=== PATIENT | male | born 1980 | race Caucasian/White ===

== ENCOUNTER 2023-03-27 09:42 | Emergency (ER) | payer OTHER, SELFPAY ==
[2023-03-27 09:50] VITALS: BP 135/86; PULSE 77; RESP 17; TEMP 36.6; O2SAT 99; BMI 20.1
--- NOTE | 2023-03-27 10:27 | ED_ITS ---
HPI - Dental/Oral General Chief complaint: Dental/Oral Stated complaint: facial swelling, seeking antibiotics Time Seen by Provider: 03/27/23 09:54 Source: patient Mode of arrival: ambulatory Limitations: no limitations History of Present Illness HPI Narrative: 42 year old male w/ no significant pmhx presents today w/ a complaint of dental swelling/pain for the last 3 days. He states that it started as just pain on the upper right side of his mouth, but over the course of the last three days has become increasingly swollen. His pain is controlled with Tylenol. He admits that this happened 6 months ago, he was given antibiotics and was supposed to have the tooth extracted, but never made the appointment. He is moving next week to [place] and states he will not be able to have it pulled before he leaves. He denies any fever, chills, nausea, vomiting, pus drainage, or trauma/injury to the mouth/teeth. MD Complaint: tooth pain Location: Tooth # (4) Onset (ago): day(s) (3) Duration: constant Relieving factors: other (tylenol) Context: poor dental care Associated symptoms: gum swelling Treatment prior to arrival: none Related Data Previous Rx's Medication Instructions Recorded amoxicillin 875 mg-potassium 1 tab PO BID #20 tabs 03/27/23 clavulanate 125 mg tablet chlorhexidine gluconate 0.12 % 15 ml buccal BID #120 mL 03/27/23 mouthwash (Peridex) ibuprofen 600 mg tablet 600 mg PO Q8H PRN fever or pain 03/27/23 #30 tabs Allergies Allergy/AdvReac Type Severity Reaction Status Date / Time vancomycin [VANCOMYCIN] Allergy Mild RASH Verified 03/27/23 09:50 Review of Systems Review of Systems: Yes all other systems are reviewed and are negative PMFSH Social History Social History Advance Directives: No Advance Directives Information Provided: No Physical Exam Vital Signs: Vital Signs: Last Vital Signs Temp 98 F 03/27/23 09:50 Pulse 77 03/27/23 09:50 Resp 17 03/27/23 09:50 BP 135/86 03/27/23 09:50 Pulse Ox 99 03/27/23 09:50 O2 Del Method Room Air 03/27/23 09:50 BMI result Body Mass Index 20.1 Appearance: Alert. Oriented X3. No acute distress. Head: normocephalic, atraumatic. Eyes: Pupils equal, round and reactive to light. ENT: (+) edema over the right anterior/buccal cheek. (+) tenderness to palpation of the right upper region of the mouth w/ friable tissue. Abnormal dentition. Tongue normal. Pharynx normal. No tonsilar swelling or exudate. No trismus Neck: Normal inspection. Neck supple. No swelling anteriorly CVS: Normal heart rate and rhythm. Pulses normal. Respiratory: No respiratory distress. Breath sounds normal. Skin: Skin warm and dry. Normal skin color. Normal skin turgor. No rashes. Neuro/psych: Oriented X 3. No motor deficit. No sensory deficit. CN II-XII intact. Normal speech and cognition. Medical Decision Making Medical Decision Making MDM Narrative: 42 year old male w/ no significant pmhx presents today w/ a complaint of dental swelling/pain for the last 3 days. On exam VSS, NAD, PE as above w/ no trismus, uvular deviation, or fluctuance noted. Likely, a dental abscess. less likely peritonsilar abscess, vs parotitis. Lower suspicion for cellulitis, retropharyngeal abscess, periorbital abscess, sinus infection, or buccal bifurication cyst. Plan: Antibiotics, anti-inflammatory, antiseptic mouthwash, outpatient dental f/u Differential Diagnosis Differential Diagnoses: The differential diagnosis associated with the presentation includes cellulitis, retropharyngeal abscess, periorbital abscess, sinus infection, or buccal bifurication cyst Prescription Management I considered prescription management with: Antibiotic and Other (anti- inflammatory & antiseptic mouthwash) Chronic Conditions Patient?s care impacted by: Other (poor dental care) Social Determinants Patient?s care significantly limited by Social Determinants of Health including: Other Social Determinant of Health Critical Care Time Critical Care Time Critical Care Time: No Discharge Plan Discharge Clinical Impression: Dental abscess Patient Disposition: Home, Self-Care Instructions: Dental Abscess (ED) Additional Instructions: Take the prescribed antibiotics as directed, complete the entire course and do not miss any doses Take Motrin and Tylenol as needed for pain Use ice to the area several times per day to help with swelling and pain You can try clove oil, a warm black tea bag or Orajel to the area as well Follow up with a dentist as soon as possible If you develop new or worsening symptoms call 911 or come back to the ER for further evaluation. Prescriptions: New amoxicillin-pot clavulanate 875-125 mg tablet 1 tab PO BID Qty: 20 0RF ibuprofen 600 mg tablet 600 mg PO Q8H PRN (Reason: fever or pain) Qty: 30 0RF chlorhexidine gluconate [Peridex] 0.12 % mouthwash 15 ml buccal BID Qty: 120 0RF Interventions: ED Discharge Assessment Last Done: 03/27/23 10:37 Discharge Date/Time: 03/27/23 10:38
== END 2023-03-27 10:38 | disposition home or self-care (01) ==
PROVIDERS: Emergency Provider Emergency Medicine
DX: K04.7 Periapical abscess without sinus (principal); R60.9 Edema, unspecified
CPT/HCPCS: 99282; 99283